=== PATIENT | male | born 1980 | race American Indian/Alaskan Native ===

== ENCOUNTER 2017-04-30 14:38 | Emergency (ER) | payer BC ==
[2017-04-30 14:47] VITALS: PULSE 95; RESP 18; TEMP 98; O2SAT 99
[2017-04-30] MEDS ORDERED: Sodium Chloride 0.9% 1,000 ML IV STA (15:57)
--- NOTE | 2017-04-30 15:58 | ED PDOC ---
HPI: Headache Time Seen by Provider: 04/30/17 14:53 Chief Complaint (Nursing): Headache Chief Complaint (Provider): Headache History Per: Patient Additional Complaint(s): Pt is a 36 yo male, PMH of HTN, presents to Ed with c/o cough, headache x1 week. Reports taking Tylenol, no relief. Pt reports he has also not taken HTN meds in 1 year, unsure of what he used to be on. Past Medical History Reviewed: Nursing Documentation, Vital Signs Vital Signs: Last Vital Signs Temp 98 F 04/30/17 14:43 Pulse 95 H 04/30/17 14:43 Resp 18 04/30/17 14:43 BP 187/118 H 04/30/17 14:43 Pulse Ox 99 04/30/17 14:43 - Medical History PMH: HTN - Surgical History Surgical History: No Surg Hx - Family History Family History: States: No Known Family Hx - Home Medications Home Medications: Ambulatory Orders Medication Instructions Recorded Acetaminophen/Butalbital/Caf 1 tab PO Q4 #10 tab 04/30/17 [Fioricet] hydroCHLOROthiazide [Hydrodiuril] 25 mg PO DAILY #30 tab 04/30/17 - Allergies Allergies/Adverse Reactions: Allergies Allergy/AdvReac Type Severity Reaction Status Date / Time No Known Allergies Allergy Verified 04/30/17 14:43 Review of Systems ROS Statement: Except As Marked, All Systems Reviewed And Found Negative Neurological: Positive for: Headache, Dizziness Physical Exam - Reviewed Nursing Documentation Reviewed: Yes Vital Signs Reviewed: Yes - Physical Exam Appears: Positive for: Well, Non-toxic, No Acute Distress Head Exam: Positive for: ATRAUMATIC, NORMAL INSPECTION, NORMOCEPHALIC Skin: Positive for: Normal Color, Warm, DRY Eye Exam: Positive for: EOMI, Normal appearance, PERRL ENT: Positive for: Normal ENT Inspection Neck: Positive for: Normal, Painless ROM Cardiovascular/Chest: Positive for: Regular Rate, Rhythm Respiratory: Positive for: CNT, Normal Breath Sounds Gastrointestinal/Abdominal: Positive for: Normal Exam, Bowel Sounds, Soft Back: Positive for: Normal Inspection Extremity: Positive for: Normal ROM Neurologic/Psych: Positive for: Alert, Oriented - ECG O2 Sat by Pulse Oximetry: 99 Medical Decision Making Medical Decision Making: IV access established and treatment initiated with IVF, Toradol and Reglan. IMPRESSION: No evidence of intracranial hemorrhage. No appreciable recent infarct. Pt educated on all results an demonstrated full understanding Stable for discharge at this time Repeat BP: 168/88 Pt educated on DASH diet and advised to follow up with PMD Disposition - Clinical Impression Clinical Impression: Acute headache, Hypertension - Patient ED Disposition Is Patient to be Admitted: No - Disposition Disposition: Routine/Home Disposition Time: 17:51 Condition: STABLE Prescriptions: Acetaminophen/Butalbital/Caf [Fioricet] 1 tab PO Q4 #10 tab hydroCHLOROthiazide [Hydrodiuril] 25 mg PO DAILY #30 tab Instructions: Acute Headache (ED), Hypertension (ED) Forms: [employer] (Arabic)
--- NOTE | 2017-04-30 17:23 | CT ---
PROCEDURE: CT HEAD WITHOUT CONTRAST. HISTORY: headache, dizzy, waking up from sleep COMPARISON: None available. TECHNIQUE: Axial computed tomography images were obtained through the head/brain without intravenous contrast. Radiation dose: Total exam DLP = 1430 mGy-cm. This CT exam was performed using one or more of the following dose reduction techniques: Automated exposure control, adjustment of the mA and/or kV according to patient size, and/or use of iterative reconstruction technique. FINDINGS: HEMORRHAGE: No intracranial hemorrhage. BRAIN: No mass effect or edema. No significant cerebral cortical atrophy. No cortical effacement noted. There is a small area of low density seen in the right posterior basal ganglia and medial temporal lobe region probably representing small perivascular space. This is seen on axial image 10. And coronal image 38 through 40. Pituitary gland is normal in size. No tonsillar ectopia is seen. VENTRICLES: Unremarkable. No hydrocephalus. CALVARIUM: Unremarkable. PARANASAL SINUSES: Mild mucosal changes are seen in the sinuses. . MASTOID AIR CELLS: Visualized mastoid air cells are unremarkable. OTHER FINDINGS: Retro-orbital regions are within IMPRESSION: No evidence of intracranial hemorrhage. No appreciable recent infarct.
[2017-04-30 17:46] VITALS: BP 150/78
== END 2017-04-30 17:52 | disposition home or self-care (01) ==
LOC: H.ER 14:38
DX: R51 Headache (principal); I10 Essential (primary) hypertension
CPT/HCPCS: 70450; 96374; 96375; 99285; J1885; J2765; J7040